=== PATIENT | male | born 1940 | race Caucasian/White ===

== ENCOUNTER 2016-11-07 09:46 | Day surgery (SDC) | payer MEDICARE ==
[~2016-11-07] VITALS: Ht 177.8 cm; Wt 74.0 kg
[2016-11-07] VITALS (11 sets, daily range): BP systolic 13–158; BP diastolic 70–89; PULSE 59–70; RESP 12–19; O2SAT 94–100
--- NOTE | 2016-11-07 07:27 | PCM.HPANE ---
Patient Data Surgeon Admitting Provider: Attending Provider:Son Kasper MD Primary Care Physician:Marta Mckeon MD Other Provider:Gerda Gamboaingham Anesthesia Reason for Visit Right Hydrocele Ht/WT & BMI Height (Feet): 5 Height (Inches): 10 Weight (Kilograms): 74.842 Body Mass Index 23.00 Allergies Coded Allergies: ciprofloxacin (Verified Adverse Reaction, Severe, FLUSHING, 11/04/16) Past Anesthesia History Anesthesia History: Denies:: Abnormal Airway, Anesthesia Reactions, Fam Anesthesia Reaction, Fam Malignant Hypertherm, Malignant Hyperthermia Diabetes History Hx Diabetes?: No MRSA MRSA: No Medications Blood Thinner: Aspirin Hypertension Medication: Yes (LISINOPRIL) Reported Medications Simvastatin 40 Mg [id number] Mg PO HS 30 Days Ref 0 11/04/16 Magnesium Oxide (Magnesium)250 Mg [id number] Mg PO DAILY 11/04/16 Cholecalciferol (Vitamin D3) (Vitamin D3)1,000 Unit Tab.chew1,000 Unit PO DAILY 08/12/16 Lisinopril 40 Mg Hhgsmv10 Mg PO DAILY 30 Days Ref 0 08/12/16 Aspirin 81 Mg [id number] Mg PO DAILY Ref 0 08/12/16 Discontinued Reported Medications Acetaminophen/Diphenhydramine (Tylenol Pm Ex-Strength Caplet)500 Mg-25 Mg Tablet2 Each PO HS 08/12/16 Temazepam 7.5 Mg Capsule7.5 Mg PO HS PRN For Insomnia 30 Days Ref 0 08/12/16 Lovastatin 40 Mg Vukhcs42 Mg PO HS #30 TABLET Ref 0 08/12/16 Donepezil 10 Mg Qwokeo35 Mg PO HS Ref 0 08/12/16 Azelastine HCl 137 Mcg/0.137 Ml [place].pump2 [place] NS BID 08/12/16 History History of ENT Problems?: Yes HEENT History: Positive for:: Hearing Problem Denies:: Abnormal Airway Hx of Heart Problems?: Yes Cardiovascular History: Positive for:: Hypertension (HYPERLIPIDEMIA) Denies:: Congestive Heart Failure Heart Murmur Hx of Respiratory Problem?: Yes Respiratory History: Denies:: Chest Surgery (MULT B/L PULMONARY NODULES- STABLE FROM PREVIOUS EXAM) Tuberculosis Use of C-PAP Machine Hx Neurologic Problems?: Yes Neurological History: Positive for:: Dementia (MILD DEMENTIA) Denies:: CVA Hx of GI Problems?: Yes Gastrointestinal History: Denies:: Diverticulitis (DIVERTICULOSIS) Rectal Bleeding (HX COLON POLYPS) Other GI Pertinent History: S/P APPY,HERNIA RPR Hx of Problems?: Yes Other Pertinent History: ED Male Hx: Positive for:: Prostate Problems (HEMORRHAGIC/OBSTRUCTIVE BPH W/ URINARY RETENTION) Scrotal Mass (RT HYDROCELE=CURRENT PROBLEM) Denies:: Testicular Surgery Skin History: Denies:: History Skin Disorders? Pressure Ulcers Hx Musculoskeletal Problems?: No Hx of Psycho/Social Problems?: Yes Psycho Social History: Positive for:: Anxiety (once in a while) Hx Surgeries?: No (appy, hernia repair) Hx Any Other Health Problems?: Yes Other History: Denies:: Cancer Endocrine Disease Hospitalization Thyroid Disease History Blood Transfusions: Denies:: Blood Transfusions Hx Diabetes: No Hx Alcohol Use: NoHx Substance Use: No Smoking Status: Never Smoker Have You Smoked inLast 12 mo: No Stop/Bang S-Snoring: Do You Snore Loudly: No T-Tired: feel tired, fatigued: Yes O-Obsered: Observed not breath: No P-Blood Pressure: treated: Yes B- Body Mass Index > 35 kg/m2: No A- Age over 50: Yes N- Neck Large Circumference: No G- Gender Male: Yes ROBERT Total Score: 4 Risk Assessment Category Category 1A: Patient has history of documented sleep apnea, and HAS NOT received any narcotic, sedative or anesthesia administration during this stay. Category 1B: Patient has history of documented sleep apnea, and HAS received any narcotic , sedative or anesthesia administration during this stay Category 2: Patient has SUSPECTED Obstructive Sleep Apnea, and HAS received any narcotic , sedative or anesthesia administration during this stay. Category 3: Patient has SUSPECTED Obstructive Sleep Apnea and HAS NOT received narcotic, sedative or anesthesia administration during this stay. Category 4: Outpatient in Procedural Areas with known sleep apnea or who screen positive for High Risk via the STOP/BANG questionnaire. Exam Exam General Appearance: Alert, Oriented X3, Cooperative, No Acute Distress HEENT/AIRWAY: MP 1 Lungs: Normal Air Movement Heart: Regular Rate/Rhythm Plan Impression Patient chart reviewed, patient interviewed and anesthestic plan with risks, benefits, and alternatives discussed, and informed consent obtained. ASA Physical Status: ASA2 Mod Systemic Disease Anesthetic Plan: GA Bene/Risks/Altern/Consents: Yes HP Complete Prior to Induction: Yes Judy Riley DO Nov 07, 2016 07:27
[~2016-11-07 09:46] MED LIST: ASPI-973 PO; Acetaminophen IV 1,000 mg IV ONE; Bupivacaine Liposome 1.3% 20 mL Inj INFILTRATE ONE; CHOL10008 PO; CeFAZolin Inj 2 GM in IV Premix 1 EACH IV ONE; LISI40TA PO; Lactated Ringer's 1,000 ML IV ONE; MAGN250T29 PO; SIMV40TA5 PO
[2016-11-07] MEDS ORDERED: fentaNYL-PF 50 mCg/mL 2 mL Inj ONE (09:47)
[2016-11-07] MEDS ORDERED: Propofol 10,000 mCg/mL 20 mL Inj ONE (09:47)
[2016-11-07] MEDS ORDERED: Dexamethasone 4 mg/mL Inj ONE (09:47)
[2016-11-07] MEDS ORDERED: Ondansetron 2 mg/mL 2 mL Inj ONE (09:47)
[2016-11-07] MEDS ORDERED: CeFAZolin Inj 2 gm / 50mL D5W IV ONE (10:48)
[2016-11-07] MEDS ORDERED: Bupivacaine Liposome 1.3% 20 mL Inj ONE (11:44)
[2016-11-07] MEDS ORDERED: Bupivacaine Liposome 1.3% 20 mL Inj INFILTRATE ONE (12:23)
[2016-11-07] MEDS ORDERED: Bacitracin Ointment Packet TOPICAL ONE (12:42)
[2016-11-07] MEDS ORDERED: Lactated Ringer's 500 ML IV PRN (13:04)
[2016-11-07] MEDS ORDERED: Lactated Ringer's 1,000 ML IV SCH (13:04)
[2016-11-07] MEDS ORDERED: Ondansetron 2 mg/mL 2 mL Inj IVPUSH PRN (13:05)
[2016-11-07] MEDS ORDERED: Phenylephrine 10,000 mCg/mL Inj IVPUSH PRN (13:05)
[2016-11-07] MEDS ORDERED: MetoCLOpramide 5 mg/mL 2 mL Inj IVPUSH PRN (13:05)
[2016-11-07] MEDS ORDERED: EPHEDrine Sulfate 50 mg/mL Inj IVPUSH PRN (13:05)
--- NOTE | 2016-11-07 13:28 | PCM.ANEP1 ---
Post Anesthesia Phase 1 PACU Phase 1 Assessment Vital Signs Vital Signs Date Time Temp Pulse Resp B/P Pulse Ox O2 Delivery O2 Flow Rate FiO2 11/07/16 10:34 36.1 59 14 132/70 99 Room Air Anesthetic Administered: GA Level of Alertness: Sleeping, hard to arouse SON's with Equal Strength: Yes Pain: No Nausea or Vomiting: No Oxygen Delivery: Simple Mask Lungs: Normal Air Movement Judy Riley DO Nov 07, 2016 13:28
--- NOTE | 2016-11-07 13:28 | PCM.ANEP2 ---
Post Anesthesia Evaluation ASA/CMS Post Anesthesia VS in Patient's Normal Range?: Yes Resp Stable; Airway Patent?: Yes CV Function & Hydration Stable: Yes Mental Status Recovered?: Yes Pain control Satisfactory?: Yes N/V Control Satisfactory?: Yes Judy Riley DO Nov 07, 2016 13:28
[2016-11-07] MEDS: fentaNYL-PF 50 mCg/mL 2 mL Inj IVPUSH PRN ×3 (13:48→14:01)
[2016-11-07] MEDS: HYDROmorphone 1 mg/mL Inj IVPUSH PRN ×2 (13:49→13:55)
--- NOTE | 2016-11-09 03:10 | OP ---
[address] [address] OPERATIVE REPORT PATIENT: MAYI RODRÍGUEZ : 1940 MR#: [id number] ADMIT: 11/07/2016 JOB ID: [id number] DATE OF SURGERY: PREOPERATIVE DIAGNOSIS(ES): Symptomatic right hydrocele. POSTOPERATIVE DIAGNOSIS(ES): Symptomatic right hydrocele. OPERATION PERFORMED: Right hydrocelectomy. SURGEON: Son Kasper MD. ANESTHESIA: General plus 1.33% Exparel. ANESTHESIOLOGIST: Judy Riley DO. FINDINGS: There was an approximately 400 cc hydrocele with cloudy straw-colored fluid within. There was actually a double lumen incomplete sac with adhesions to the tunica albuginea at this surface. The testicles and epididymis themselves appeared normal. appendage was erythematous and this was cautery excised and discarded. PROCEDURE SUMMARY: The patient was positioned supine, was administered general anesthetic. The lower abdomen, genitalia and groin were then prepped and draped in sterile fashion. The midline scrotal raphe was then divided using the needlepoint cautery pen, as was the subcutaneous dartos fascial layer down to the level of the tunica albuginea. This space was then carefully developed and the entire structure was then delivered from the right hemiscrotum into the operative field. The tunica vaginalis was then divided longitudinally from the anterior surface the cloudy fluid contents drained. The incomplete compartment was identified. This was further opened. Further cautery resection was undertaken and repair could be accomplished. Hemostasis was excellent. The repair was performed with a running intermittently locking 2-0 Monocryl. It was secured superiorly and inferiorly to the inferior and posterior scrotal cornejo respectively with the same suture. The testis epididymis was then excised using a cautery pen and discarded. Exparel was then used to infiltrate the subcutaneous dartos fascia and then skin, as well as drain site of inferior lateral aspect of the right hemiscrotum. A 10-[place] Wes[place] drain was then positioned in the right hemiscrotum appropriately and was secured at the level of the skin with a 2-0 silk. The dartos fascial layer was then closed with a running vertical mattress of 2-0 Monocryl. The skin layer was then reapproximated with a running horizontal mattress of 4-0 Monocryl. The skin surface and scrotum were then cleaned and dried, and antibiotic ointment was applied to the incision line. Dry sterile fluffs were then applied in the scrotum and an athletic supporter was then fitted to the patient. He was then connected and sent to recovery in stable condition.
== END 2016-11-07 23:59 | disposition home or self-care (01) ==
LOC: SAS 09:46
PROVIDERS: ATTEND Specialist
DX: N43.3 Hydrocele, unspecified (principal); I10 Essential (primary) hypertension; Z79.82 Long term (current) use of aspirin
CPT/HCPCS: 55040; J0131; J0690; J1100; J1170; J2405; J3010; J7120